=== PATIENT | male | born 1965 | race Two or more races ===

== ENCOUNTER 2023-12-29 09:37 | Emergency (ER) | payer BC, SELFPAY ==
[2023-12-29 09:52] VITALS: BP 114/73
[2023-12-29 10:12] LABS: Urine Albumin Negative (Neg - Trace); Urine Bilirubin Negative (Negative); Urine Character Clear (Clear); Urine Color Yellow; Urine Glucose Negative (Negative); Urine Ketone Negative (Negative); Urine Leukocyte Negative (Negative); Urine Nitrite Negative (Negative); Urine Occult Blood Negative (Negative); Urine Specific Gravity 1.005 (<1.030); Urine Urobilinogen Negative (Neg - 1+)
--- NOTE | 2023-12-29 11:01 | ED.GENMED ---
History of Present Illness
General
Chief Complaint: Abdominal Symptoms
Source: patient
Exam Limitations: none
Time Seen by Provider: 12/29/23 10:59
Nursing documentation reviewed up to this point in time: agreed with
Travel History
Have you had any contact with someone who has COVID-19?: No
Do you have any symptoms of coronavirus? Fever > 100 degrees, chills, cough, shortness of breath, sore throat, loss of taste or smell, muscle aches, or headache?: No
History of Present Illness
History of Present Illness:
58 y/o male with no past medical history is presenting emergency department today with abdominal pain for the past 7 days. Patient states that a few days ago, it started on his left side and just to the discomfort it would come and go. Patient
states that then, his week progressed, his pain traveled to the lower abdomen he felt discomfort diffusely. Patient states he is also felt fevers and chills but he did not take his temperature at home. Patient denies any nausea or vomiting.
Patient denies any changes to his appetite. Patient denies any constipation or diarrhea. Patient states that he has had pain like this in the past but has not been as persistent as is. Patient unable identify any provoking or palliative qualities
to it. Patient denies chest pain or shortness of breath. Patient has any dysphagia. Patient denies any history of past abdominal surgeries. He not take anything today for the pain today.
Past History
Past History
ED Past Medical History: None
ED Past Surgical History: None
Social History
Tobacco: Non-smoker
Alcohol: None
Review of Systems
Review of Systems
All Other Systems: ROS reviewed and negative except as documented in HPI and ROS
Phy Exam
Physical Exam
Physical Exam:
General: Patient is well appearing and in no acute distress; non-toxic
Skin: Warm and dry, no rashes or lesions
Head: Normocephalic, atraumatic
Eyes: Sclera non-icteric. EOMs intact.
Cardiac: Regular rate and rhythm, no murmurs
Peripheral Vascular: No lower extremity swelling or edema
Pulm: Normal respiratory effort, no wheezes, rales, or rhonchi
Abdomen: Abdomen is non-rigid, no guarding present. Mild abdominal tenderness to palpation in the left lower quadrant, no palpable masses, normoactive bowel sounds
Neuro: CN II-XII intact, no focal neurologic deficits.
Psychiatric: Appropriate mood and affect.
Course
Orders/Labs/Results
Orders:
Orders
12/29/23 10:02
Urinalysis Reflex To Culture Urgent
Date Specimen was Collected: 12/29/23
Time Specimen was Collected: 09:57
12/29/23 11:31
IV Insert/Care/Rem.- Treatment PRN
Acetaminophen [Tylenol] 650 mg PO NOW STA
12/29/23 11:37
CT Abd/pelvis W Iv Cont Urgent
Comment:
Reason For Exam: left sided lower abdominal pain
12/29/23 11:39
Complete Blood Count/With Diff Urgent
Comprehensive Metabolic Panel Urgent
Lipase Urgent
12/29/23 12:10
Ketorolac [Toradol] 15 mg IV NOW STA
Abnormal Lab Results
12/29/23
11:39
MPV 11.9 H fL
(7.4-10.4)
Absolute Monos (auto) 0.8 H 10^3/uL
(0.1-0.6)
Lymphocytes % 16.7 L %
(20.5-51.1)
Monocytes % 10.3 H %
(1.7-9.3)
12/29/23 11:39
12/29/23 11:39
Vital Signs
Initial and Last Documented VS:
Initial Vital Signs
Temp Pulse BP Pulse Ox
100.3 F 74 114/73 98
12/29/23 09:52 12/29/23 09:52 12/29/23 09:52 12/29/23 09:52
Last Documented Vital Signs
Temp Pulse Resp BP Pulse Ox
100.3 F 68 18 110/72 100
12/29/23 09:52 12/29/23 14:18 12/29/23 14:18 12/29/23 14:18 12/29/23 14:18
MDM/Problems Addressed
Differential Diagnosis Includes:
Differentials include diverticulitis, gastroenteritis, infectious versus inflammatory colitis, IBS
MDM/Problems Addressed:
abdominal pain
--------
will give toradol and motrin, obtain CT of the abdomen and pelvis with IV contrast
Chronic conditions affecting care:
n/a
Acute Exacerbation and/or Progression of Chronic Illness:
n/a
*Pulse Oximetry
Patient hypoxic: no
*Critical Care Note
Total Time (30-74mins, 75-104mins- exclusive of procedures): Not Applicable
Data Reviewed
Review of Other/Old Records Reveals: Records ( reviewed previous ER physician documentation from 05/13/2023) and Discharge Summary (No discharge summary in [facility] to review)
Source: patient and records
Prescriptions/Medications Considered But Not Given:
considered toradol in addition to help with pain however patient states that his pain was adequately controlled with Tylenol
Patient Management
Escalation/DeEscalation of care consider admission/obs:
58 y/o male with no past medical history is presenting emergency department today with abdominal pain for the past 7 days. Patient states that it comes and goes and not able to identify any factors make it better or worse. Patient likes to
describe it is more of a discomfort rather than pain. Patient presented here with a low-grade fever 100.3. Patient was given Tylenol to help control his fever and pain which did help him. On exam, his belly is soft and only mildly tender, no
palpable masses, no guarding. His CBC demonstrates no leukocytosis, his CMP is unremarkable, no elevation of LFTs, no elevation of bilirubin, normal kidney function. CT abdominal pelvis negative for any acute intra-abdominal process. Urinalysis
is negative. Considering patient now feels better with Tylenol prior to discharge, is well-appearing, and his workup is unremarkable, we will send patient home to monitor his symptoms and potentially follow-up with gastroenterology. I suspect a
viral infectious etiology to patient's symptoms. Return precautions given, encouraged follow up and to continue symptom monitoring.
ED Attending Note
-
Portions of this chart may have been created with voice recognition software.� Occasional wrong word or��sound alike� substitutions may have occurred due to the inherent limitations of voice recognition software.
Discharge Plan
Departure
Patient Disposition: Home (Routine Discharge)
Date of Disposition: 12/29/23
Time of Disposition: 14:38
Patient with high blood pressure during this ER visit?: No
Condition: Good
Discharge Problem:
Abdominal pain
Instructions: Fever, Adult ED, Abdominal Pain, BLOOD PRESSURE
Referrals:
Feroz Forrest DO [Family Provider] -
Esperanza Parker MD [Active] - Call in 1-3 days for appt
Stand Alone Forms: Return to Work
Activity Restrictions/Additional Instructions:
Your lab work and CT scan results are attached in the packet.
Please return emergency department should you get any acute worsening of your pain, intractable nausea or vomiting, persistent fevers, black stools, blood in your vomit, shortness of breath, chest pain, or any other concerning signs or symptoms.
Please follow-up with your primary care provider in a week to ensure the resolution of your symptoms. Please call the attached number for GI follow-up should your symptoms not solved.
Interventions
Interventions:
*Risk Screen - Suicide Last Done: 12/29/23 11:16
*General Assessment Last Done: 12/29/23 11:16
*Neglect/Abuse Screening Last Done: 12/29/23 11:16
ED- Fall Risk Assessment Last Done: 12/29/23 14:51
*Nursing Disposition Last Done: 12/29/23 14:51
SB-Qvzqdf-Tqjbxccuao Assessment Last Done: 12/29/23 11:16
Discharge Date and Time
Discharge Date/Time: 12/29/23 14:52
Print Language: [id number]
[2023-12-29] MEDS: TYLENOL 650 MG PO (11:39)
[2023-12-29 11:57] LABS: ALT (SGPT) 14 U/L (0-50); AST (SGOT) 25 U/L (17-59); Albumin 4.4 g/dl (3.5-5.0); Alkaline Phosphatase 70 U/L (38-126); Blood Urea Nitrogen 14 mg/dl (9-20); Calcium 9.4 mg/dl (8.4-10.2); Carbon Dioxide 26 mmol/L (22-30); Chloride 100 mmol/L (98-107); Glucose 89 mg/dl (70-99); Potassium 4.2 mmol/L (3.5-5.1); Sodium 136 mmol/L (135-145); Total Bilirubin 0.7 mg/dl (0.2-1.3); Total Protein 7.4 g/dl (6.3-8.2); eGFR > 60.00
[2023-12-29 12:12] LABS: Lipase 290 U/L (23-300)
[2023-12-29 12:20] LABS: % Basophils 0.3 % (0-2); % Eosinophils 0.8 % (0-6); % Immature Granulocytes 0.3 % (0-0.5); % Lymphocytes 16.7 % (20.5-51.1); % Monocytes 10.3 % (1.7-9.3); % Neutrophils 71.6 % (42.2-75.2); Absolute Eosinophils 0.1 10^3/uL (0-0.7); Absolute Lymphocytes 1.2 10^3/uL (1.2-3.4); Absolute Monocytes 0.8 10^3/uL (0.1-0.6); Absolute Neutrophils 5.3 10^3/uL (1.4-6.5); Hematocrit 41.1 % (39.0-52.0); Hemoglobin 13.7 g/dL (13.0-18.0); Mean Corp Hgb Conc. 33.3 g/dL (33.0-37.0); Mean Corpuscular Hgb 28.6 pg (27.0-31.0); Mean Corpuscular Volume 85.8 fL (80.0-94.0); Mean Platelet Volume 11.9 fL (7.4-10.4); Nucleated Red Blood Cells % 0 % (-); Platelet Count 222 10^3/uL (130-400); Red Blood Cell Count 4.79 10^6/uL (4.70-6.10); Red Cell Dist. Width 12.2 % (11.5-14.5); White Blood Cell Count 7.4 10^3/uL (4.8-10.8)
[2023-12-29 14:18] VITALS: BP 110/72
== END 2023-12-29 14:52 | disposition home or self-care (01) ==
LOC: EMR 09:37
PROVIDERS: Emergency Medicine; Physician Assistant; EMERGENCY PHYSICIAN Emergency Medicine; FAMILY PHYSICIAN Family Medicine
DX: R10.32 Left lower quadrant pain (principal); R50.9 Fever, unspecified
CPT/HCPCS: 99285; 74177; 80053; 81003; 83690; 85025; Q9967